=== PATIENT | female | born 1970 | race Caucasian/White ===

== ENCOUNTER 2017-05-25 21:35 | Inpatient (IN) | payer MEDICAID, OTHER ==
[~2017-05-25] VITALS: Ht 162.6 cm; Wt 73.7 kg
[2017-05-25] MEDS ORDERED: KETOROLAC 30 MG INJ IV STA (21:58)
--- NOTE | 2017-05-25 21:58 | ERD ---
ER Documentation Chief Complaint Chief Complaint RLQ abd pain x 1 week HPI This 47 year old female presents to ED for ABD pain x 1 yr. pt reports that that pain is worse over the last 3 days, pain described as " sticking "RLQ, denies n/v/f , pt reports change in appetite and diarrhea ROS All systems reviewed and are negative except as per history of present illness. Allergies Allergies: Coded Allergies: No Known Allergy (Unverified , 05/25/17) PMhx/Soc History of Surgery: No Anesthesia Reaction: No Hx Neurological Disorder: No Hx Respiratory Disorders: No Hx Cardiac Disorders: No Hx Psychiatric Problems: No Hx Miscellaneous Medical Probl: No Hx Alcohol Use: No Hx Substance Use: No Hx Tobacco Use: No Smoking Status: Never smoker Physical Exam Vitals Vital Signs Date Time Temp Pulse Resp B/P Pulse Ox O2 Delivery O2 Flow Rate FiO2 05/26/17 01:10 98.2 57 16 141/86 99 Room Air 05/25/17 21:39 97.8 66 20 127/84 100 Physical Exam Const: Well-nourished well-appearing well-hydrated 47-year-old female obvious discomfort no acute distress Head: Atraumatic Eyes: Normal Conjunctiva ENT: Normal External Ears, Nose and Mouth. Mucous membranes moist Neck: Resp: Chest rises and falls magically, clear to auscultation bilaterally no respiratory distress Cardio: S1-S2, no S3-S4 regular rate and rhythm, no murmurs Abd: Soft, dull to percussion McBurney's point tenderness, negative CVA tenderness Neur: Awake and alert Psych: Normal Mood and Affect Result Diagram: 05/25/17221405/25/172214 Results 24 hrs Laboratory Tests Test 05/25/17 22:00 05/25/17 22:15 Urine Color YELLOW Urine Clarity CLEAR Urine pH 7.0 Urine Specific [place] 1.020 Urine Ketones NEGATIVEmg/dL Urine Nitrite NEGATIVEmg/dL Urine Bilirubin NEGATIVEmg/dL Urine Urobilinogen 1+mg/dL Urine Leukocyte Esterase TRACELeu/ul Urine Microscopic RBC 16/HPF Urine Microscopic WBC 2/HPF Urine Squamous Epithelial Cells FEW/HPF Urine Bacteria FEW/HPF Urine Mucus FEW/HPF Urine Hemoglobin 1+mg/dL Urine Glucose NEGATIVEmg/dL Urine Total Protein NEGATIVEmg/dl White Blood Count 5.610^3/ul Red Blood Count 4.3010^6/ul Hemoglobin 13.2g/dl Hematocrit 39.0% Mean Corpuscular Volume 90.7fl Mean Corpuscular Hemoglobin 30.7pg Mean Corpuscular Hemoglobin Concent 33.8g/dl Red Cell Distribution Width 12.1% Platelet Count 35039^3/UL Mean Platelet Volume 10.8fl Neutrophils % 54.5% Lymphocytes % 34.2% Monocytes % 8.6% Eosinophils % 2.1% Basophils % 0.4% Nucleated Red Blood Cells % 0.0/100WBC Neutrophils # 3.110^3/ul Lymphocytes # 1.910^3/ul Monocytes # 0.510^3/ul Eosinophils # 0.110^3/ul Basophils # 0.010^3/ul Nucleated Red Blood Cells # 0.010^3/ul Sodium Level 142mmol/L Potassium Level 3.7mmol/L Chloride Level 105mmol/L Carbon Dioxide Level 25mmol/L Anion Gap 16 Blood Urea Nitrogen 10mg/dl Creatinine 0.81mg/dl Glucose Level 97mg/dl Calcium Level 9.1mg/dl Total Bilirubin 0.2mg/dl Direct Bilirubin 0.00mg/dl Indirect Bilirubin 0.2mg/dl Aspartate Amino Transf (AST/SGOT) 19IU/L Alanine Aminotransferase (ALT/SGPT) 25IU/L Alkaline Phosphatase 73IU/L Total Protein 6.9g/dl Albumin 4.0g/dl Globulin 2.90g/dl Albumin/Globulin Ratio 1.37 Lipase 99U/L Current Medications Medications (Trade) Dose Ordered Sig/Jeremias Route PRN Reason Start Time Stop Time Status Last Admin Dose Admin Ketorolac Tromethamine 30 mg 30 mg ONCE STAT IV 05/25/17 21:58 05/25/17 22:01 DC 05/25/17 22:27 Lactated Ringer's 500 ml @ 500 mls/hr Q1H ONCE IV 05/26/17 00:30 05/26/17 01:29 DC 05/26/17 00:13 Piperacillin Sod/ Tazobactam Sod 50 ml @ 100 mls/hr ONCE ONCE IVPB 05/26/17 00:30 05/26/17 00:30 DC Piperacillin Sod/ Tazobactam Sod (Zosyn 3.375gm/ 50 ml (Pmx)) 50 ml @ 100 mls/hr ONCE ONCE IV 05/26/17 00:30 05/26/17 01:01 DC 05/26/17 00:37 Interpretation text CBC shows no evidence of hemorrhage or infection Chemistry shows no evidence of significant electrolyte abnormalities or renal insufficiency Liver function tests shows no evidence of acute biliary or hepatic dysfunction Lipase shows no evidence of acute pancreatitis This is positive for trace leukocytes. Negative for nitrates. Procedures/MDM PROCEDURE: US right upper quadrant CLINICAL INDICATION: Abdominal pain TECHNIQUE: Multiple real-time images were acquired of the patient's right upper abdomen utilizing a high resolution transducer. COMPARISON: CT abdomen and pelvis 05/25/2017 FINDINGS: Liver: Multiple cysts of the liver are demonstrated the largest measuring 5.4 x 4.8 x 4.5 cm. There is no evidence of solid liver mass or intrahepatic ductal dilatation. The liver contour is normal. Overall liver size is within normal limits. The maximum dimension estimated at 17.5 cm . Gallbladder: Multiple mobile echogenic foci with distal acoustic shadowing are present. . There is no evidence of gallbladder wall thickening or pericholecystic fluid. No sonographic Lozano's sign is reported. Common bile duct: Normal; 3.4 mm. There is no evidence for choledocholithiasis. Right Kidney: Normal; maximum length measured at approximately 11.3 cm. Pancreas: Obscured by bowel gas. RPTAT:HJJR IMPRESSION: 1. Cholelithiasis without evidence of cholecystitis. 2. Multiple hepatic cysts. 3. Bowel gas obscures visualization of the pancreas. Physician Jae Date Time Electronically viewed and signed by Physician Jae on 05/26/2017 00:56 PROCEDURE: CT Abdomen and Pelvis without contrast. CLINICAL INDICATION: Right-sided abdominal pain more prominent within the lower quadrant. TECHNIQUE: CT scan of the abdomen and pelvis without contrast was performed without intravenous contrast. Coronal and sagittal reformatted images were obtained from the axial source images. Images were reviewed on a high- resolution PACS workstation. DICOM images are available. CTDI 9 mGy, DLP 491 mGy-cm One or more of the following dose reduction techniques were used: Automated exposure control Adjustment of the mA and/or kV according to patient size. Use of iterative reconstruction technique. COMPARISON: None. FINDINGS: The lung bases are clear. The heart size is normal. The aorta and its branches are normal in size and caliber with minimal atherosclerotic calcifications. The kidneys are symmetric in size and density. There is no perinephric fat stranding. There is no nephroureterolithiasis or hydronephrosis. The ureters are normal in course and caliber. Evaluation of solid organs is limited due to the lack of intravenous contrast. There are multiple hypodense lesions within the liver of low attenuation, suggestive of cysts measuring up to 6.6 cm. The right lobe of liver measures 17.8 cm cranial-caudal, within normal limits. There is mild wall thickening of the gallbladder with mild distension and trace pericholecystic fluid on axial images 51 - 54. No calcified gallstones are visualized. There is no intrahepatic or extrahepatic biliary duct dilatation. The spleen, adrenal glands, and pancreas are unremarkable. The distal esophagus is unremarkable. The stomach is distended with debris, otherwise grossly unremarkable. The small bowel loops are normal in caliber without evidence of small bowel obstruction. The appendix is mildly prominent and measures up to 8 mm in thickness and is partially gas-filled which can be seen with normal or inflamed appendices. There is mild subtle fat stranding surrounding the appendix on axial images 119 - 128 and coronal images 39 - 44 series 601. There is no free intraperitoneal fluid or pneumoperitoneum. There is no abscess. There is no mesenteric, retroperitoneal, or pelvic lymphadenopathy. The bladder is partially distended, but grossly unremarkable. The uterus and adnexa are unremarkable. A small amount of free fluid is visualized within the posterior pelvis, likely physiologic. There are no acute fractures. There is mild degenerative disc disease within the thoracolumbar spine. The abdominal and pelvic anna are unremarkable. Subcutaneous soft tissues are unremarkable. RPTAT: HTLT IMPRESSION: 1. Mildly prominent appendix (8 mm) which is partially gas filled with mild subtle fat stranding surrounding the appendix which can be seen with developing early appendicitis. 2. Mild distension of the gallbladder with wall thickening and trace pericholecystic fluid which may be from mild inflammation but no visualized gallstones. A follow-up abdominal ultrasound may be obtained to evaluate for cholecystitis as well as correlation with lab values. 3. Multiple hepatic cysts measuring up to 6.6 cm. Results were discussed with Dr. Talbot at 05/25/2017 11:40 PM. .Susana Sandra MD, MD Date Time Electronically viewed and signed by .Susana Sandra MD, on 05/25/2017 23: 47 This 47-year-old female presents to emergency department for evaluation of left- sided abdominal pain, patient reports pain has been intermittent for the last year, she reports changed over the last 3 days to where now her pain is localized in her left lower quadrant, she reports decreased appetite, diarrhea, denies nausea, vomiting, and fever. Patient denies any past medical history of abdominal pain. Emergency room course includes history and physical exam, McBurney's point tenderness, suspicious for appendicitis. Patient will obtain serology, and CAT scan of abdomen and pelvis without contrast. Patient will be given pain control with Toradol intramuscularly. Laboratory findings are unremarkable for evidence of infection, hemorrhage, electrolyte imbalance, renal insufficiency, hepatitis, or pancreatitis. Urinalysis positive for trace leukocytes, negative for nitrates.. CAT abdomen and pelvis as interpreted by layboy operator: Mildly prominent appendix 8 mm which is partially gas-filled with mild subtle fat stranding surrounding the appendix which can be seen with developing early appendicitis. Mild distention of the gallbladder with wall thickening and trace armand-cholecystic fluid which may be from mild inflammation but no visualized gallstones. A follow-up abdominal ultrasound may be obtained to further evaluate cholecystitis as well as correlation with lab values. Multiple hepatic cysts measuring up to 6.6 cm. Right upper quadrant ultrasound is read by radiologist. Cholelithiasis without evidence of cholecystitis. Multiple hepatic cysts. Bowel gas obscures visualization of pancreas. This case discussed with supervising physician Dr. Uribe and to start 1 L of lactated Ringer's, Zosyn, and to continue pain control. Patient denies any pain at this time, calls surgeon, admission pending. 0300 hospital bed still pending, brief report given to Candi WALDROP who will monitor patient until she moves from emergency room to admission bed. Departure Diagnosis: Primary Impression: Appendicitis Appendicitis type: other Qualified Code: K36 - Other appendicitis Condition: Sanjeev TALBOTOMAR May 25, 2017 21:58
[2017-05-25 22:32] LABS: BASOPHILS % 0.4 % (0.0-2.0); EOSINOPHILS # 0.1 10^3/ul (0.0-0.5); EOSINOPHILS % 2.1 % (0.0-7.0); HEMOGLOBIN 13.2 g/dl (12.0-16.0); LYMPHOCYTES # 1.9 10^3/ul (0.8-2.9); LYMPHOCYTES % 34.2 % (15.0-51.0); MEAN CORPUSCULAR HEMOGLOBIN 30.7 pg (29.0-33.0); MEAN CORPUSCULAR HGB CONC 33.8 g/dl (32.0-37.0); MEAN CORPUSCULAR VOLUME 90.7 fl (82.0-101.0); MEAN PLATELET VOLUME 10.8 fl (7.4-10.4); MONOCYTE # 0.5 10^3/ul (0.3-0.9); MONOCYTES % 8.6 % (0.0-11.0); NEUTROPHIL # 3.1 10^3/ul (1.6-7.5); NEUTROPHILS % 54.5 % (39.0-77.0); PLATELET COUNT 208 10^3/UL (140-415); RED CELL DISTRIBUTION WIDTH 12.1 % (11.5-14.5); WHITE BLOOD COUNT 5.6 10^3/ul (4.8-10.8)
[2017-05-25 22:52] LABS: ALBUMIN/GLOBULIN RATIO 1.37; BILIRUBIN,INDIRECT 0.2 mg/dl (0-1.1); BILIRUBIN,TOTAL 0.2 mg/dl (0.2-1.3); CALCIUM 9.1 mg/dl (8.4-10.2); CREATININE 0.81 mg/dl (0.44-1.00); POTASSIUM 3.7 mmol/L (3.5-5.1); TOTAL PROTEIN 6.9 g/dl (6.1-8.1)
[2017-05-25 23:00] LABS: ADD UMIC YES; UR ASCORBIC ACID NEGATIVE (NEGATIVE); UR BACTERIA FEW /HPF (NONE SEEN); UR BILIRUBIN (Dip) NEGATIVE (NEGATIVE); UR BLOOD (Dip) 1+ mg/dL (NEGATIVE); UR CLARITY CLEAR (CLEAR); UR COLOR YELLOW (YELLOW); UR GLUCOSE (Dip) NEGATIVE (NEGATIVE); UR KETONES (Dip) NEGATIVE (NEGATIVE); UR LEUKOCYTE ESTERASE (Dip) TRACE Leu/ul (NEGATIVE); UR MUCUS FEW /HPF (NONE SEEN); UR NITRITE (Dip) NEGATIVE (NEGATIVE); UR RBC 16 /HPF (0-5); UR SQUAMOUS EPITHELIAL CELL FEW /HPF (FEW); UR TOTAL PROTEIN (Dip) NEGATIVE (NEGATIVE); UR UROBILINOGEN (Dip) 1+ mg/dL (NEGATIVE)
--- NOTE | 2017-05-25 23:47 | RADRPT ---
PROCEDURE: CT Abdomen and Pelvis without contrast. CLINICAL INDICATION: Right-sided abdominal pain more prominent within the lower quadrant. TECHNIQUE: CT scan of the abdomen and pelvis without contrast was performed without intravenous co ntrast. Coronal and sagittal reformatted images were obtained from the axial source images. Images were reviewed on a high-resolution PACS workstation. DICOM images are available. CTDI 9 mGy, DLP 491 mGy-cm One or more of the following dose reduction techniques were used: Automated exposure control Adjustment of the mA and/or kV according to patient size. Use of iterative reconstruction technique. COMPARISON: None. FINDINGS: The lung bases are clear. The heart size is normal. The aorta and its branches are normal in size and caliber with minimal atherosclerotic calcification s. The kidneys are symmetric in size and density. There is no perinephric fat stranding. There is no ne phroureterolithiasis or hydronephrosis. The ureters are normal in course and caliber. Evaluation of solid organs is limited due to the lack of intravenous contrast. There are multiple hy podense lesions within the liver of low attenuation, suggestive of cysts measuring up to 6.6 cm. The right lobe of liver measures 17.8 cm cranial-caudal, within normal limits. There is mild wall thick ening of the gallbladder with mild distension and trace pericholecystic fluid on axial images 51 - 5 4. No calcified gallstones are visualized. There is no intrahepatic or extrahepatic biliary duct dil atation. The spleen, adrenal glands, and pancreas are unremarkable. The distal esophagus is unremarkable. The stomach is distended with debris, otherwise grossly unrema rkable. The small bowel loops are normal in caliber without evidence of small bowel obstruction. T he appendix is mildly prominent and measures up to 8 mm in thickness and is partially gas-filled whi ch can be seen with normal or inflamed appendices. There is mild subtle fat stranding surrounding th e appendix on axial images 119 - 128 and coronal images 39 - 44 series 601. There is no free intrape ritoneal fluid or pneumoperitoneum. There is no abscess. There is no mesenteric, retroperitoneal, or pelvic lymphadenopathy. The bladder is partially distended, but grossly unremarkable. The uterus and adnexa are unremarkable . A small amount of free fluid is visualized within the posterior pelvis, likely physiologic. There are no acute fractures. There is mild degenerative disc disease within the thoracolumbar spine . The abdominal and pelvic anna are unremarkable. Subcutaneous soft tissues are unremarkable. RPTAT: HTLT IMPRESSION: 1. Mildly prominent appendix (8 mm) which is partially gas filled with mild subtle fat stranding gil rrounding the appendix which can be seen with developing early appendicitis. 2. Mild distension of the gallbladder with wall thickening and trace pericholecystic fluid which may be from mild inflammation but no visualized gallstones. A follow-up abdominal ultrasound may be obt ained to evaluate for cholecystitis as well as correlation with lab values. 3. Multiple hepatic cysts measuring up to 6.6 cm. Results were discussed with Dr. Talbot at 05/25/2017 11:40 PM. .Susana Sandra MD, MD Date Time Electronically viewed and signed by .Susana Sandra MD, on 05/25/2017 23:47 .T/
[2017-05-26] VITALS (15 sets, daily range): BP systolic 100–129; BP diastolic 56–77; PULSE 54–66; RESP 13–21; TEMP 98.2; Ht 162.6 cm; Wt 73.7 kg
[2017-05-26] MEDS ORDERED: LACTATED RINGER'S 500 ML IV ONE (00:30)
[2017-05-26] MEDS ORDERED: PIPER-TAZO 3.375 GM IV (PMX) 50 ML IV ONE (00:30)
[2017-05-26] MEDS ORDERED: PIPER-TAZO 2.25 GM (PMX) 50 ML IVPB ONE (00:30)
--- NOTE | 2017-05-26 00:57 | RADRPT ---
PROCEDURE: US right upper quadrant CLINICAL INDICATION: Abdominal pain TECHNIQUE: Multiple real-time images were acquired of the patient's right upper abdomen utilizing a high resolution transducer. COMPARISON: CT abdomen and pelvis 05/25/2017 FINDINGS: Liver: Multiple cysts of the liver are demonstrated the largest measuring 5.4 x 4.8 x 4.5 cm. There is no evidence of solid liver mass or intrahepatic ductal dilatation. The liver contour is normal. Overall liver size is within normal limits. The maximum dimension estimated at 17.5 cm . Gallbladder: Multiple mobile echogenic foci with distal acoustic shadowing are present. . There is no evidence of gallbladder wall thickening or pericholecystic fluid. No sonographic Lozano's sign i s reported. Common bile duct: Normal; 3.4 mm. There is no evidence for choledocholithiasis. Right Kidney: Normal; maximum length measured at approximately 11.3 cm. Pancreas: Obscured by bowel gas. RPTAT:HJJR IMPRESSION: 1. Cholelithiasis without evidence of cholecystitis. 2. Multiple hepatic cysts. 3. Bowel gas obscures visualization of the pancreas. Physician Jae Date Time Electronically viewed and signed by Physician Jae on 05/26/2017 00:56 JR/
[2017-05-26] MEDS ORDERED: DEXTROSE 5%-0.45% NACL 1,000 ML IV SCH (05:00)
[2017-05-26] MEDS ORDERED: morphine 4 MG/ML VIAL IV PRN (05:00)
[2017-05-26] MEDS ORDERED: ONDANSETRON 4 MG INJ IV PRN ×4 (05:00→12:00)
[2017-05-26 06:34] LABS: BASOPHILS % 0.2 % (0.0-2.0); EOSINOPHILS # 0.2 10^3/ul (0.0-0.5); EOSINOPHILS % 2.7 % (0.0-7.0); LYMPHOCYTES # 2.2 10^3/ul (0.8-2.9); LYMPHOCYTES % 38.7 % (15.0-51.0); MEAN CORPUSCULAR HEMOGLOBIN 30.5 pg (29.0-33.0); MEAN CORPUSCULAR HGB CONC 33.3 g/dl (32.0-37.0); MEAN CORPUSCULAR VOLUME 91.4 fl (82.0-101.0); MEAN PLATELET VOLUME 10.6 fl (7.4-10.4); MONOCYTE # 0.3 10^3/ul (0.3-0.9); MONOCYTES % 5.7 % (0.0-11.0); NEUTROPHILS % 52.3 % (39.0-77.0); PLATELET COUNT 203 10^3/UL (140-415); RED BLOOD COUNT 3.94 10^6/ul (4.20-5.40); RED CELL DISTRIBUTION WIDTH 12.1 % (11.5-14.5); WHITE BLOOD COUNT 5.7 10^3/ul (4.8-10.8)
[2017-05-26 06:53] LABS: MAGNESIUM 1.9 mg/dl (1.7-2.5)
--- NOTE | 2017-05-26 08:19 | HP ---
Date/Time of Note Date/Time of Note DATE: 05/26/17 TIME: 08:16 Assessment/Plan VTE Prophylaxis VTE Prophylaxis Intervention: SCD's Lines/Catheters IV Catheter Type (from Nrsg): Saline Lock Urinary Cath still in place: No Assessment/Plan Assessment/Plan ASSESSMENT 47 yo male with abd pain found to have acute appendicitis PLAN NPO with IVF pain mgmt awaiting surgical eval HPI/ROS Admit Date/Time Admit Date/Time May 26, 2017 at 00:16 Hx of Present Illness This is a 47 yo male with hx of abd pain presented to ER with progressively worsening abd pain of 3 days duration. reported associated nausea. In ER, he is found to have acute appendicitis. vitals and labs are stable. PMH/Family/Social Social History Smoking Status: Never smoker Exam/Review of Systems Vital Signs Vitals Vital Signs Date Time Temp Pulse Resp B/P Pulse Ox O2 Delivery O2 Flow Rate FiO2 05/26/17 07:55 98.4 62 16 115/66 98 05/26/17 03:45 Room Air Intake and Output 05/25/17 05/25/17 05/26/17 15:00 23:00 07:00 Intake Total 100 ml Balance 100 ml Exam Constitutional: alert, oriented, well developed Head: atraumatic, normocephalic Eyes: EOMI, PERRL Respiratory: clear to auscultation, normal air movement Cardiovascular: nl pulses, regular rate and rhythm Gastrointestinal: soft, tender Extremities: normal pulses Labs Result Diagram: 05/26/17 0559 05/25/17 2215 Medications Medications Current Medications Dextrose/Sodium Chloride (D5-1/2ns) 1,000 ml @ 100 mls/hr Q10H IV Last administered on 05/26/17t 05:54; Admin Dose 100 MLS/HR; Start 05/26/17 at 05: 00 Morphine Sulfate (morphine) 3 mg Q4H PRN IV PAIN; Start 05/26/17 at 05:00 Ondansetron HCl (Zofran Inj) 4 mg Q6H PRN IV NAUSEA AND/OR VOMITING; Start at 05:00 CRISTINA MESSER MD May 26, 2017 08:19
[2017-05-26] MEDS ORDERED: LIDOCAINE 2% (SDV) 5 ML INJ ONE (09:55)
[2017-05-26] MEDS ORDERED: PROPOFOL 20 ML ONE (09:55)
[2017-05-26] MEDS ORDERED: MIDAZOLAM 1 MG/ML 2 ML INJ ONE (09:55)
[2017-05-26] MEDS ORDERED: FENTAnyl 50 MCG/ML VIAL ONE (09:55)
[2017-05-26] MEDS ORDERED: ROCURONIUM 50 MG INJ ONE (09:55)
[2017-05-26] MEDS ORDERED: DEXAMETHASONE 4 MG/ML 1 ML INJ ONE (09:56)
[2017-05-26] MEDS ORDERED: BUPIVACAINE 0.5%/EPI (SDV) 30 ML INJ ONE (09:56)
[2017-05-26] MEDS ORDERED: ONDANSETRON 4 MG INJ ONE (09:56)
[2017-05-26] MEDS ORDERED: FAMOTIDINE 20 MG INJ ONE (09:56)
[2017-05-26] MEDS ORDERED: HYDROmorphONE (0.2 MG/ML) 10ML SYG IV PRN ×2 (10:00→12:00)
[2017-05-26] MEDS ORDERED: SUGAMMADEX SODIUM 200 MG/2 ML VIAL IV ONE (10:00)
[2017-05-26] MEDS ORDERED: KETOROLAC 30 MG INJ IV PRN (10:00)
[2017-05-26] MEDS ORDERED: MEPERIDINE 25 MG INJ IV PRN ×2 (10:00→12:00)
[2017-05-26] MEDS ORDERED: morphine (1 MG/ML) 10ML SYRINGE IV PRN ×2 (10:00→12:00)
--- NOTE | 2017-05-26 10:17 | CONS ---
Date/Time of Note Date/Time of Note DATE: 05/26/17 TIME: 10:12 Assessment/Plan Assessment/Plan Additional Assessment/Plan Acute appendicitis Plan: Laparoscopic appendectomy possible open. I have discussed the procedure, outcomes, expectations, alternatives and risks in detail with the patient who has an excellent understanding of the nature of her situation and agrees to the proposed plan of therapy as outlined. Consultation Date/Type/Reason Admit Date/Time May 26, 2017 at 00:16 Date of Consultation: May 26, 2017 Reason for Consultation Acute appendicitis Hx of Present Illness The patient is an otherwise healthy female who presents to the emergency room with several days of right lower quadrant abdominal pain. CT scan showed findings compatible with early appendicitis. She was also noted to have gallstones. Abdominal ultrasound showed gallstones without evidence of cholecystitis. The patient has had no fevers or chills. Past Medical History Medical History: no pertinent history Past Surgical History Past Surgical Hx: no surgical history Family History Significant Family History: no pertinent family hx Social History Smoking Status: Never smoker Exam/Review of Systems Vital Signs Vitals Vital Signs Date Time Temp Pulse Resp B/P Pulse Ox O2 Delivery O2 Flow Rate FiO2 05/26/17 07:55 98.4 62 16 115/66 98 05/26/17 03:45 Room Air Intake and Output 05/25/17 05/25/17 05/26/17 15:00 23:00 07:00 Intake Total 100 ml Balance 100 ml Exam Constitutional: alert, oriented Psych: no complaints Head: normocephalic Eyes: nl conjunctiva ENMT: nl external ears & nose Neck: supple Respiratory: clear to auscultation Gastrointestinal: tender (Right lower quadrant tender without rebound. Slight guarding) Musculoskeletal: nl extremities to inspection Extremities: normal pulses Neurological: GENERATION ENGINEER II-XII intact Skin: nl turgor Lymph: nl lymph nodes Results Result Diagram: 05/26/17 0559 05/25/17 2215 Results 24 hrs Laboratory Tests Test 05/25/17 22:00 05/25/17 22:15 05/26/17 05:59 Urine Color YELLOW Urine Clarity CLEAR Urine pH 7.0 Urine Specific [place] 1.020 Urine Ketones NEGATIVE Urine Nitrite NEGATIVE Urine Bilirubin NEGATIVE Urine Urobilinogen 1+ H Urine Leukocyte Esterase TRACE A Urine Microscopic RBC 16 H Urine Microscopic WBC 2 Urine Squamous Epithelial Cells FEW Urine Bacteria FEW A Urine Mucus FEW A Urine Hemoglobin 1+ H Urine Glucose NEGATIVE Urine Total Protein NEGATIVE White Blood Count 5.6 5.7 Red Blood Count 4.30 3.94 L Hemoglobin 13.2 12.0 Hematocrit 39.0 36.0 L Mean Corpuscular Volume 90.7 91.4 Mean Corpuscular Hemoglobin 30.7 30.5 Mean Corpuscular Hemoglobin Concent 33.8 33.3 Red Cell Distribution Width 12.1 12.1 Platelet Count 208 203 Mean Platelet Volume 10.8 H 10.6 H Neutrophils % 54.5 52.3 Lymphocytes % 34.2 38.7 Monocytes % 8.6 5.7 Eosinophils % 2.1 2.7 Basophils % 0.4 0.2 Nucleated Red Blood Cells % 0.0 0.0 Neutrophils # 3.1 3.0 Lymphocytes # 1.9 2.2 Monocytes # 0.5 0.3 Eosinophils # 0.1 0.2 Basophils # 0.0 0.0 Nucleated Red Blood Cells # 0.0 0.0 Sodium Level 142 Potassium Level 3.7 Chloride Level 105 Carbon Dioxide Level 25 Anion Gap 16 Blood Urea Nitrogen 10 Creatinine 0.81 Glucose Level 97 Calcium Level 9.1 Total Bilirubin 0.2 Direct Bilirubin 0.00 Indirect Bilirubin 0.2 Aspartate Amino Transf (AST/SGOT) 19 Alanine Aminotransferase (ALT/SGPT) 25 Alkaline Phosphatase 73 Total Protein 6.9 Albumin 4.0 Globulin 2.90 Albumin/Globulin Ratio 1.37 Lipase 99 Phosphorus Level 4.0 Magnesium Level 1.9 Serum HCG, Qualitative NEGATIVE Medications Medications Current Medications Dextrose/Sodium Chloride (D5-1/2ns) 1,000 ml @ 100 mls/hr Q10H IV Last administered on 05/26/17 05:54; Admin Dose 100 MLS/HR; Start 05/26/17 at 05: 00 Morphine Sulfate (morphine) 3 mg Q4H PRN IV PAIN; Start 05/26/17 at 05:00 Ondansetron HCl (Zofran Inj) 4 mg Q6H PRN IV NAUSEA AND/OR VOMITING; Start at 05:00 PALLAVI CONTEH MD May 26, 2017 10:17
[2017-05-26] MEDS ORDERED: BUPIVACAINE 0.5%/EPI (SDV) 30 ML INJ INJ ONE (10:30)
[2017-05-26] MEDS ORDERED: ACETAMINOPHEN 1000MG/100ML IV 100 ML ONE (10:56)
[2017-05-26] MEDS ORDERED: KETOROLAC 30 MG INJ ONE (10:57)
--- NOTE | 2017-05-26 11:19 | OPR ---
Date/Time of Note Date/Time of Note DATE: 05/26/17 TIME: 11:14 Operative Report Procedure Date: May 26, 2017 Preoperative Diagnosis Appendicitis Postoperative Diagnosis Early appendicitis without localized peritonitis Operation/Procedure Performed Laparoscopic appendectomy Surgeon Pallavi Null MD Consumer Banker None Anesthesia Type: general Anesthesiologist: GERBER NICHOLAS Estimated Blood Loss: 0 - 10 ml's Transfusion none Specimen Appendix Grafts/Implants none Tubes/Drains None Complications none Pt Condition Post Procedure: stable Disposition: PACU Indications Abdominal pain Procedure Description After satisfactory general endotracheal anesthesia was achieved, the abdomen was prepped and draped in the usual fashion. The abdomen was insufflated with carbon dioxide through an umbilical Veress needle to 15 mmHg pressure. The Veress needle was removed and the umbilical incision extended to 5 mm through which a 5 mm trocar was placed. A 5 mm 0 lens was placed. Laparoscopy showed a dilated appendix without localized peritonitis. Under direct visualization a 5 mm suprapubic trocar was placed as well as a 12 mm trocar midway between the umbilicus and the xiphoid. A window was made in the mesoappendix through which a vascular stapler was placed across the base of the cecum, closed and fired disconnecting the appendix from the cecum. A second firing of the stapler across the mesoappendix fully freed the appendix which was placed intact into an Endo Catch and submitted. The staple lines were hemostatic. The fascia of the 12 mm port site was closed with a #1 Vicryl placed with a Bhupinder-Karishma device. The abdomen was then desufflated and all trochars were removed. The skin punctures were infiltrated with 30 cc of 0.25% plain Marcaine and closed with emma. Sponge and needle counts were reported as correct 2. PALLAVI NULL MD May 26, 2017 11:19
[2017-05-26] MEDS ORDERED: morphine 2 MG INJ IV PRN (11:30)
[2017-05-26] MEDS ORDERED: OXYCODONE/ACETAMINOPHEN (5/325) TAB PO PRN ×2 (11:30)
[2017-05-26] MEDS: FENTAnyl 50 MCG/ML VIAL IV PRN ×4 (11:37→11:55)
[2017-05-26] MEDS ORDERED: FENTAnyl 50 MCG/ML VIAL IV PRN (12:00)
--- NOTE | 2017-05-27 09:02 | DS ---
Date/Time of Note Date/Time of Note DATE: 05/27/17 TIME: 08:59 Discharge Summary Admission/Discharge Info Admit Date/Time May 26, 2017 at 00:16 Discharge Date/Time May 26, 2017 at 18:20 Discharge Diagnosis Early appendicitis without localized peritonitis Patient Condition: Stable Procedures Procedure Date: May 26, 2017 Preoperative Diagnosis Appendicitis Postoperative Diagnosis Early appendicitis without localized peritonitis Operation/Procedure Performed Laparoscopic appendectomy Surgeon Clifton Null MD Hospital Course Patient presented with abdominal pain and was found on CT to have early appendicitis. She underwent Laparoscopic appendectomy and was discharged home in stable condition after being cleared by general surgery. . Home Meds No Active Prescriptions or Reported Meds Primary Care Provider Care Physician No Primary Time spent on discharge: < 30 minutes CARLOS CERDA May 27, 2017 09:02
== END 2017-05-26 18:20 | disposition home or self-care (01) | DRG 343 ==
LOC: FTE 21:35 → MS2 05-26 00:16
PROVIDERS: ADMIT Internal Medicine; ATTEND Internal Medicine
PROC: 0DTJ4ZZ Resection of Appendix, Percutaneous Endoscopic Approach (ICD-10-PCS; principal; 2017-05-26 10:30)
DX: K35.80 Unspecified acute appendicitis (principal); K80.20 Calculus of gallbladder without cholecystitis without obstruction
CPT/HCPCS: 74176; 76705; 80053; 81001; 83690; 83735; 84100; 84703; 85025; 88304; J0131; J1100; J1885; J2175; J2250; J2270; J2405; J2543; J3010; J7042; J7120

== ENCOUNTER 2017-06-05 20:21 | Emergency (ER) | payer MEDICAID ==
[~2017-06-05] VITALS: Ht 160 cm; Wt 73.3 kg
[2017-06-05 20:39] VITALS: Ht 160 cm; Wt 73.3 kg
[2017-06-05] MEDS ORDERED: HYDR-902 PO (21:32)
--- NOTE | 2017-06-05 21:43 | ERD ---
ER Documentation Chief Complaint Chief Complaint 10 DAYS POST-OP APPENDIX WITH RIGHT PELVIC PAIN,AFEBRILE HPI Patient is a 47-year-old female who is 10 days status post appendectomy performed here. She is complaining of pain at her surgical sites. The pain is worse after she eats but she has not had any fever, nausea, vomiting, or diarrhea. She is unsure when she is supposed to get her emma removed. ROS All systems reviewed and are negative except as per history of present illness. Medications Home Meds Active Scripts Hydrocodone/Acetaminophen ([place] 10-325 Tablet) 1 Each Tablet, 1 TAB PO Q6H Y for PAIN, #20 TAB Prov:BRI THOMAS PA-C 06/05/17 Allergies Allergies: Coded Allergies: No Known Allergy (Unverified , 06/05/17) PMhx/Soc History of Surgery: Yes (appendectomy) Anesthesia Reaction: No Hx Neurological Disorder: No Hx Respiratory Disorders: No Hx Cardiac Disorders: No Hx Psychiatric Problems: No Hx Miscellaneous Medical Probl: No Hx Alcohol Use: No Hx Substance Use: No Hx Tobacco Use: No Smoking Status: Never smoker FmHx Family History: No diabetes Physical Exam Vitals Vital Signs Date Time Temp Pulse Resp B/P Pulse Ox O2 Delivery O2 Flow Rate FiO2 06/05/17 20:39 98.4 68 20 136/87 99 Physical Exam Const: [] Head: Atraumatic Eyes: Normal Conjunctiva ENT: Normal External Ears, Nose and Mouth. Neck: Full range of motion..~ No meningismus. Resp: Clear to auscultation bilaterally Cardio: Regular rate and rhythm, no murmurs Abd: Soft, non tender, non distended. Normal bowel sounds Skin: 3 healing laparoscopic surgical sites on the mid abdomen with emma in place 2-3 emma in each site, no surrounding erythema or edema, no bleeding or drainage Procedures/MDM Patient presents with pain over her surgical site. Patients is alert, oriented , well appearing, and in no distress with normal vital signs. There is no fever , tachycardia, or tachypnea. Wounds are healing appropriately without any evidence of infection. Her belly is soft. She is afebrile no nausea or vomiting. No fever. Emma were removed and she was given prescription for [place] for pain control and I encouraged her to call surgeon tomorrow for follow- up appointment within the next 24-48 hours or should she she should return for follow-up. Patient counseled regarding my diagnostic impression and care plan. Prior to discharge all questions answered. Pt agrees with treatment plan and understands strict return precautions. Pt is instructed to follow up with primary care provider within 24-48 hours. Precautionary instructions provided including instructions to return to the ER if not improving or for any worsening or changing symptoms or concerns. Departure Diagnosis: Primary Impression: Removal of staple Condition: Stable Patient Instructions: Post Op Wound Check, General Additional Instructions: Call your primary care doctor TOMORROW for an appointment during the next 1-2 days.See the doctor sooner or return here if your condition worsens before your appointment time. BRI THOMAS PA-C Jun 05, 2017 21:43
== END 2017-06-05 21:43 | disposition home or self-care (01) ==
LOC: FTE 20:21
DX: R10.2 Pelvic and perineal pain (principal); Z48.02 Encounter for removal of sutures
CPT/HCPCS: 99283